=== PATIENT | female | born 1965 ===

== ENCOUNTER 2018-08-17 07:00 | Day surgery (SDC) | payer OTHER ==
[~2018-08-17] VITALS: Ht 152.4 cm; Wt 76.7 kg
[2018-08-17] MEDS ORDERED: PERCOCET 5-3251 EACH PO (19:37)
== END 2018-08-17 08:00 | disposition home or self-care (01) ==
LOC: CIR.AMB 07:00 → SURH 07:45 → EDSTATUS 07:45 → SURH 07:55 → O/R 07:55 → CIR.AMB 08:00 → SURH 14:15 → O/R 08-18 00:20 → CIR.AMB 08-18 08:00
DX: N83.292 Other ovarian cyst, left side (principal)